=== PATIENT | female | born 1955 | race Caucasian/White ===

== ENCOUNTER 2017-06-21 11:42 | Emergency (ER) | payer SELFPAY ==
[2017-06-21 11:48] VITALS: BP 118/72
[2017-06-21] MEDS ORDERED: KETOROLAC 60 MG/2 ML VIAL IM STA (12:04)
[2017-06-21] MEDS ORDERED: PHENAZOPYRIDINE 100 MG TABLET PO STA (12:04)
[2017-06-21 12:14] LABS: BILIRUBIN,URINE NEGATIVE (NEGATIVE)
--- NOTE | 2017-06-21 12:20 | ED Physician Documentation ---
PD HPI FEMALE - Stated complaint Stated Complaint: FEMALE - Chief complaint Chief Complaint: UTI - History obtained from History obtained from: Patient - History of Present Illness Timing - onset: How many days ago (several) Timing - duration: Days Timing - details: Gradual onset Pain level max: 4 Pain level max: 4 Associated symptoms: Fever (subjective), Dysuria, Urinary frequency. No: Vaginal bleeding, Vaginal discharge, Genital sore/lesion Similar symptoms before: Diagnosis (UTI) - Additional information Additional information: on a road trip on her motorcycle. From [facility] Review of Systems Constitutional: denies: Chills, Myalgias Cardiac: denies: Chest pain / pressure Respiratory: denies: Cough GI: denies: Vomiting, Diarrhea Skin: denies: Rash Musculoskeletal: denies: Neck pain, Back pain Neurologic: denies: Headache PD PAST MEDICAL HISTORY - Past Medical History Past Medical History: Yes Musculoskeletal: Chronic back pain - Present Medications Home Medications: Ambulatory Orders Medication Instructions Recorded Confirmed Azelastine HCl 137 mcg NS DAILY 06/21/17 06/21/17 Cetirizine [ZyrTEC] 10 mg PO DAILY 06/21/17 06/21/17 Diclofenac Epolamine [Flector] 1 patch PO DAILY 06/21/17 06/21/17 Levalbuterol HCl [Xopenex] 3 ml PO PRN PRN 06/21/17 06/21/17 Levothyroxine Sodium [Synthroid] 112 mcg PO DAILY 06/21/17 06/21/17 Nitrofurantoin Monohyd/M-Cryst 100 mg PO BID #10 capsule 06/21/17 [Macrobid 100 mg Capsule] Pantoprazole [Protonix] 40 mg PO DAILY 06/21/17 06/21/17 Phenazopyridine HCl [Pyridium] 200 mg PO TID PRN #6 tablet 06/21/17 Xolair 150 mg IM ONCE 06/21/17 raNITIdine [Zantac] 150 mg PO DAILY 06/21/17 06/21/17 traMADol [Ultram] 50 mg PO DAILY 06/21/17 06/21/17 - Allergies Allergies/Adverse Reactions: Allergies Allergy/AdvReac Type Severity Reaction Status Date / Time clindamycin Allergy Rash Verified 06/21/17 11:48 Penicillins Allergy Rash Verified 06/21/17 11:48 - Living Situation Living Situation: reports: With family Living Arrangement: reports: At home - Social History Does the pt have substance abuse?: No - Family History Family history: reports: Non contributory PD ED PE NORMAL - Vitals Vital signs reviewed: Yes - General General: Alert and oriented X 3, No acute distress - HEENT HEENT: Moist mucous membranes - Neck Neck: Supple, no meningeal sign - Cardiac Cardiac: RRR, Strong equal pulses - Respiratory Respiratory: No respiratory distress, Clear bilaterally - Abdomen Abdomen: Soft, Non tender, Non distended - Back Back: No CVA TTP, No spinal TTP - Derm Derm: Warm and dry - Neuro Neuro: Alert and oriented X 3 - Psych Psych: Normal mood, Normal affect Results - Vitals Vitals: Vital Signs - 24 hr 06/21/17 11:44 Temperature 36.6 C Heart Rate 79 Respiratory 18 Rate Blood Pressure 118/72 O2 Saturation 100 Oxygen O2 Source Room air - Labs Labs: Laboratory Tests 06/21/17 12:07 Urine Color YELLOW Urine Clarity CLEAR Urine pH 6.0 Ur Specific Mason <=1.005 Urine Protein NEGATIVE Urine Glucose (UA) NEGATIVE Urine Ketones NEGATIVE Urine Occult Blood TRACE-INTA Urine Nitrite NEGATIVE Urine Bilirubin NEGATIVE Urine Urobilinogen 0.2 (NORMAL) Ur Leukocyte Esterase TRACE H Urine RBC 0-5 Urine WBC 6-10 H Ur Squamous Epith Cells FEW Squamous Urine Bacteria Few Ur Microscopic Review INDICATED Urine Culture Comments INDICATED PD MEDICAL DECISION MAKING - ED course Complexity details: reviewed results, re-evaluated patient, considered differential (no cauda equina, no spinal epidural abscess, no fracture, no aortic dissection or evidence of aneursym rupture), d/w patient ED course: Patient is a 61-year-old female with a UTI. Will place on antibiotics. She is well-appearing, nontoxic. Afebrile. She was also given an injection of Toradol for her back pain, this appears to be musculoskeletal low back pain. Patient counseled regarding signs and symptoms for which I believe and urgent re -evaluation would be necessary. Patient with good understanding of and agreement to plan and is comfortable going home at this time This document was made in part using voice recognition software. While efforts are made to proofread this document, sound alike and grammatical errors may occur. Departure - Departure Disposition: 01 Home, Self Care Clinical Impression: Urinary tract infection Qualifiers: Urinary tract infection type: acute cystitis Hematuria presence: without hematuria Qualified Code(s): N30.00 - Acute cystitis without hematuria Condition: Good Instructions: ED UTI Cystitis Female Follow-Up: your,doctor in 1 week [Other] Prescriptions: Nitrofurantoin Monohyd/M-Cryst [Macrobid 100 mg Capsule] 100 mg PO BID #10 capsule Phenazopyridine HCl [Pyridium] 200 mg PO TID PRN #6 tablet PRN Reason: dysuria Comments: Take all antibiotics until gone. Return if you worsen.
[2017-06-21 12:25] LABS: UA w/ MICROSCOPIC CHARGE YES
[2017-06-21 12:31] LABS: UR CULTURE IF IND INDICATED
[2017-06-21] MEDS ORDERED: KETOROLAC 60 MG/2 ML VIAL ONE (12:34)
[2017-06-21] MEDS ORDERED: PHENAZOPYRIDINE 100 MG TABLET PO ONE (12:34)
[2017-06-21] MEDS ORDERED: NITROFURANTOIN MACRO 100 MG CAPSULE PO STA (12:34)
[2017-06-21] MEDS ORDERED: NITROFURANTOIN MACRO 100 MG CAPSULE PO ONE (12:48)
== END 2017-06-21 12:48 | disposition home or self-care (01) ==
LOC: ED 11:42
DX: N30.00 Acute cystitis without hematuria (principal); G89.29 Other chronic pain
CPT/HCPCS: 81001; 87077; 87086; 87181; 96372; 99283; A9270; 81003